=== PATIENT | male | born 1950 | race Caucasian/White ===

== ENCOUNTER 2024-06-14 08:09 | Outpatient (REF) | payer OTHER, SELFPAY | END 2024-06-14 08:10 | disposition home or self-care (01) | LOC: HO.SH 08:09 | PROVIDERS: PCP Nurse Practitioner Family; Visit Provider Nurse Practitioner Family | DX: Z01.118 Encounter for examination of ears and hearing with other abnormal findings (principal); H61.21 Impacted cerumen, right ear | CPT/HCPCS: 92567 ==